=== PATIENT | female | born 1980 | race Caucasian/White ===

== ENCOUNTER 2016-08-20 14:13 | Inpatient (IN) | payer OTHER ==
[~2016-08-20] VITALS: Ht 160 cm; Wt 91.2 kg
[~2016-08-20 14:13] MED LIST: LR 1,000 ML IV.SOLN IV ONE; MIDAZOLAM HCL 5 MG/5 ML VIAL ONE; NS 500 ML BAG IV ONE; ONDANSETRON HCL 4 MG/2 ML VIAL ONE; OXYTOCIN 10 UNIT/ML VIAL ONE; PROPOFOL 200MG/ 20ML VIAL (DIPRIVAN) IV ONE; SEVOFLURANE 15 MIN GAS INH ONE; SUCCINYLCHOLINE CHLORIDE 20 MG/ML(QUELICIN) ONE; fentaNYL CITRATE 250 MCG/5 ML AMP ONE
--- NOTE | 2016-08-20 15:08 | NUR ---
ADMISSION NOTES RECEIVED A DIRECT ADMIT PT, IN NO ACUTE DISTRESS. ORIENTED TO CALL LIGHT USE.
[2016-08-20 15:10] VITALS: BP_SYST 104
[2016-08-20] MEDS ORDERED: CEFAZOLIN 2 GM IVPB PREMIX 50 ML IV ONE (16:00)
[2016-08-20 16:51] LABS: BASOPHILS # (AUTO) 0.1 K/uL (0.0-0.2); BASOPHILS % (AUTO) 0.6 % (0.0-2.0); EOSINOPHILS # (AUTO) 0.1 K/uL (0.0-0.4); EOSINOPHILS % (AUTO) 0.7 % (0.0-4.0); HEMATOCRIT 41.4 % (36-48); HEMOGLOBIN 14.2 g/dL (12.0-16.0); LYMPHOCYTES # (AUTO) 2.2 K/uL (1.0-5.5); LYMPHOCYTES % (AUTO) 24.4 % (20.5-51.5); MEAN CORPUSCULAR HEMOGLOBIN 29 pg (27-31); MEAN CORPUSCULAR HGB CONC 34 % (32-36); MEAN CORPUSCULAR VOLUME 83 fL (79.0-98.0); MONOCYTES # (AUTO) 0.2 K/uL (0.0-1.0); NEUTROPHILS # (AUTO) 6.6 K/uL (1.8-7.7); NEUTROPHILS % (AUTO) 72.3 % (40.0-70.0); PLATELET COUNT (AUTO) 265 K/uL (130-430); RED BLOOD CELL COUNT(AUTO) 4.99 MIL/uL (4.2-6.2); RED CELL DISTRIBUTION WIDTH 12.4 % (9.0-15.0); WHITE BLOOD COUNT (AUTO) 9.2 K/uL (4.8-10.8)
[2016-08-20 17:03] LABS: CALCIUM 8.8 mg/dL (8.4-11.0); CREATININE 0.72 mg/dL (0.55-1.30); POTASSIUM 3.4 mmol/L (3.5-5.1)
[2016-08-20 17:08] LABS: ALBUMIN 3.7 g/dL (3.4-4.8); TOTAL BILIRUBIN 0.5 mg/dL (0.0-1.0); TOTAL PROTEIN, SERUM 7.9 g/dL (6.4-8.3)
[2016-08-20] MEDS ORDERED: LR 1,000 ML IV SCH (19:25)
[2016-08-20] MEDS ORDERED: MORPHINE 2 MG/ML INJ. SYRINGE IVP PRN (19:30)
[2016-08-20] MEDS ORDERED: OXYTOCIN 20 UNIT in LR 1,000 ML IV SCH (19:30)
[2016-08-20] MEDS ORDERED: METHYLERGONOVINE MALEATE 0.2 MG/ML AMP IM ONE (19:30)
[2016-08-20] MEDS ORDERED: METOCLOPRAMIDE HCL 10 MG/2 ML VIAL IVP PRN ×2 (19:30→20:45)
[2016-08-20] MEDS ORDERED: ACETAMINOPHEN 500 MG TABLET PO PRN (19:30)
[2016-08-20] MEDS ORDERED: ONDANSETRON HCL 4 MG/2 ML VIAL IVP PRN (19:30)
[2016-08-20] MEDS ORDERED: OXYTOCIN/NORMAL SALINE 1,000 ML IV SCH ×2 (21:45→22:00)
[2016-08-20] MEDS ORDERED: OXYTOCIN 10 UNIT/ML VIAL ONE (22:05)
[2016-08-20 22:20] VITALS: BP_SYST 121
[2016-08-20] MEDS: METHYLERGONOVINE MALEATE 0.2 MG TABLET PO SCH (23:48)
[2016-08-21] MEDS: METHYLERGONOVINE MALEATE 0.2 MG TABLET PO SCH ×2 (06:26→14:50)
== END 2016-08-21 16:50 | disposition home or self-care (01) | DRG 777 ==
LOC: SDS 14:13 → SMU 14:19 → SPU 20:47
PROVIDERS: ADMIT Specialist; ATTEND Specialist
PROC: 10D28ZZ Extraction of Products of Conception, Ectopic, Via Natural or Artificial Opening Endoscopic (ICD-10-PCS; principal; 2016-08-20 16:00)
DX: O00.80 Other ectopic pregnancy without intrauterine pregnancy (principal); O34.219 Maternal care for unspecified type scar from previous cesarean delivery; E66.01 Morbid (severe) obesity due to excess calories; O43.2 Morbidly adherent placenta; O99.211 Obesity complicating pregnancy, first trimester; Z3A.01 Less than 8 weeks gestation of pregnancy; Z68.35 Body mass index [BMI] 35.0-35.9, adult
CPT/HCPCS: 36415; 80053; 85025; 85576; 85610-TC; 85730-TC; 86886; 86900; 86901; 86920; 87081; 88305; 94010; J0330; J0690; J2210; J2250; J2405; J2590; J2704; J3010; J7040; J7120

== ENCOUNTER 2018-01-28 20:30 | Observation (INO) | payer OTHER ==
[~2018-01-28] VITALS: Ht 160 cm; Wt 108.9 kg
[2018-01-28] MEDS ORDERED: LR 1,000 ML IV SCH (20:48)
[2018-01-28] MEDS ORDERED: TERBUTALINE SULFATE 1 MG/ML VIAL SUBCUT ONE (21:00)
[2018-01-28 21:26] LABS: BILIRUBIN,URINE NEGATIVE (NEGATIVE); BLOOD, URINE 1+ (NEGATIVE); CLARITY/URINE CLEAR (CLEAR); COLOR,URINE YELLOW (YELLOW); GLUCOSE,URINE NEGATIVE (NEGATIVE); KETONES,URINE 3+ (NEGATIVE); LEUKOCYTE ESTERASE ,URINE 2+ (NEGATIVE); NITRITE, URINE NEGATIVE (NEGATIVE); PH,URINE 6.5 (5.0-8.0); PROTEIN URINE TRACE (NEGATIVE); UROBILINOGEN,URINE 0.2 (0.2-1.0)
[2018-01-28 21:32] LABS: BACTERIA,URINE MODERATE /HPF (None Seen)
[2018-01-28 21:33] LABS: BASOPHILS % (AUTO) 0.2 % (0.0-2.0); EOSINOPHILS % (AUTO) 0.4 % (0.0-4.0); HEMATOCRIT 24.3 % (36-48); HEMOGLOBIN 8.8 g/dL (12.0-16.0); LYMPHOCYTES # (AUTO) 0.9 K/uL (1.0-5.5); LYMPHOCYTES % (AUTO) 13.1 % (20.5-51.5); MEAN CORPUSCULAR HEMOGLOBIN 30 pg (27-31); MEAN CORPUSCULAR HGB CONC 36 % (32-36); MEAN CORPUSCULAR VOLUME 85 fL (79.0-98.0); MONOCYTES # (AUTO) 0.4 K/uL (0.0-1.0); MONOCYTES % (AUTO) 5.2 % (1.7-9.3); NEUTROPHILS # (AUTO) 5.8 K/uL (1.8-7.7); NEUTROPHILS % (AUTO) 81.1 % (40.0-70.0); PLATELET COUNT (AUTO) 137 K/uL (130-430); RED BLOOD CELL COUNT(AUTO) 2.88 MIL/uL (4.2-6.2); RED CELL DISTRIBUTION WIDTH 13.4 % (9.0-15.0); WHITE BLOOD COUNT (AUTO) 7.1 K/uL (4.8-10.8)
[2018-01-28] MEDS ORDERED: TERBUTALINE SULFATE 1 MG/ML VIAL ONE (22:00)
== END 2018-01-29 09:30 | disposition home or self-care (01) ==
LOC: SPU 20:30
PROVIDERS: ADMIT Specialist; ATTEND Specialist
DX: O62.9 Abnormality of forces of labor, unspecified (principal); Z3A.36 36 weeks gestation of pregnancy
CPT/HCPCS: 36415; 81000; 81002; 85025; 86592; 86886; 86900; 86901; G0378 ×2; J3105; J7120

== ENCOUNTER 2018-01-30 18:18 | Inpatient (IN) | payer OTHER ==
[~2018-01-30] VITALS: Ht 160 cm; Wt 108.9 kg
[2018-01-30] MEDS ORDERED: TERBUTALINE SULFATE 1 MG/ML VIAL SUBCUT ONE (20:15)
[2018-01-30] MEDS ORDERED: TERBUTALINE SULFATE 1 MG/ML VIAL SUBCUT PRN (20:15)
[2018-01-30] MEDS ORDERED: TERBUTALINE SULFATE 1 MG/ML VIAL ONE (20:19)
[2018-01-30] MEDS: PROMETHAZINE HCL 25 MG/ML AMP IM PRN (22:10)
[2018-01-30] MEDS: MEPERIDINE HCL/PF 100 MG/ML AMP IM PRN (22:11)
[2018-01-31] MEDS: PROMETHAZINE HCL 25 MG/ML AMP IM PRN ×2 (02:20→06:24)
[2018-01-31] MEDS: MEPERIDINE HCL/PF 100 MG/ML AMP IM PRN ×2 (02:21→06:23)
[2018-01-31] MEDS ORDERED: LR 1,000 ML IV SCH (15:15)
[2018-02-02] MEDS ORDERED: HYDROCORTISONE 0.5%, 28.35 GM TOPICAL CREAM TP PRN (19:00)
== END 2018-02-05 16:50 | disposition home or self-care (01) | DRG 778 ==
LOC: SPU 18:18 → OBSVTOIN 01-31 18:34 → SPU 01-31 21:20
PROVIDERS: ADMIT Specialist; ATTEND Specialist
DX: O60.03 Preterm labor without delivery, third trimester (principal); Z3A.36 36 weeks gestation of pregnancy
CPT/HCPCS: 59025; 81002-TC; G0378; J2175; J2550; J3105; J7120

== ENCOUNTER 2018-02-11 05:20 | Inpatient (IN) | payer OTHER ==
[~2018-02-11] VITALS: Ht 160 cm; Wt 108.9 kg
[2018-02-11] MEDS ORDERED: LR 1,000 ML IV SCH ×3 (05:32→08:55)
[2018-02-11] MEDS ORDERED: CEFAZOLIN 2 GM IVPB PREMIX 50 ML IV ONE (05:45)
[2018-02-11 06:00] VITALS: BP_SYST 132
[2018-02-11 07:19] LABS: BASOPHILS # (AUTO) 0.1 K/uL (0.0-0.2); BASOPHILS % (AUTO) 0.7 % (0.0-2.0); EOSINOPHILS # (AUTO) 0.1 K/uL (0.0-0.4); EOSINOPHILS % (AUTO) 0.9 % (0.0-4.0); HEMOGLOBIN 12.3 g/dL (12.0-16.0); LYMPHOCYTES # (AUTO) 2.1 K/uL (1.0-5.5); LYMPHOCYTES % (AUTO) 22.8 % (20.5-51.5); MEAN CORPUSCULAR HEMOGLOBIN 30 pg (27-31); MEAN CORPUSCULAR HGB CONC 34 % (32-36); MEAN CORPUSCULAR VOLUME 86 fL (79.0-98.0); MONOCYTES # (AUTO) 0.4 K/uL (0.0-1.0); MONOCYTES % (AUTO) 4.6 % (1.7-9.3); NEUTROPHILS # (AUTO) 6.3 K/uL (1.8-7.7); PLATELET COUNT (AUTO) 178 K/uL (130-430); RED BLOOD CELL COUNT(AUTO) 4.17 MIL/uL (4.2-6.2); RED CELL DISTRIBUTION WIDTH 13.6 % (9.0-15.0)
[2018-02-11 07:24] LABS: BILIRUBIN,URINE NEGATIVE (NEGATIVE); BLOOD, URINE NEGATIVE (NEGATIVE); CLARITY/URINE SL HAZY (CLEAR); COLOR,URINE YELLOW (YELLOW); GLUCOSE,URINE NEGATIVE (NEGATIVE); KETONES,URINE TRACE (NEGATIVE); LEUKOCYTE ESTERASE ,URINE 2+ (NEGATIVE); NITRITE, URINE NEGATIVE (NEGATIVE); PROTEIN URINE NEGATIVE (NEGATIVE); UROBILINOGEN,URINE 0.2 (0.2-1.0)
[2018-02-11 08:15] LABS: BACTERIA,URINE FEW /HPF (None Seen); MUCUS,URINE None Seen /LPF (None Seen); RBC,URINE 0-3 /HPF (0-3); YEAST,URINE None Seen /HPF (None Seen)
[2018-02-11] MEDS ORDERED: METOCLOPRAMIDE HCL 10 MG/2 ML VIAL IVP PRN (08:45)
[2018-02-11] MEDS ORDERED: MEPERIDINE HCL/PF 25 MG/ML DISP.SYRIN IVP PRN (08:45)
[2018-02-11] MEDS ORDERED: MEPERIDINE HCL/PF 50 MG/ML AMP IVP PRN ×2 (08:45)
[2018-02-11] MEDS ORDERED: OXYTOCIN/0.9 % SODIUM CHLORIDE 1,000 ML IV ONE (08:55)
[2018-02-11] MEDS ORDERED: NS IRRIG SOLN 1000 ML IR ONE (09:00)
[2018-02-11] MEDS ORDERED: ePHEDrine sulfate 50 MG/ML VIAL ONE (09:00)
[2018-02-11] MEDS ORDERED: SENNOSIDES/DOCUSATE SODIUM 1 TAB TABLET(SENOKOT-S) PO PRN (09:00)
[2018-02-11] MEDS ORDERED: DOCUSATE SODIUM 100 MG CAPSULE PO PRN (09:00)
[2018-02-11] MEDS ORDERED: SIMETHICONE 80 MG TAB.CHEW PO PRN (09:00)
[2018-02-11] MEDS ORDERED: ONDANSETRON HCL 4 MG/2 ML VIAL ONE (09:00)
[2018-02-11] MEDS ORDERED: LR 1,000 ML IV.SOLN IV ONE (09:00)
[2018-02-11] MEDS ORDERED: BISACODYL 10 MG/SUPPOSITORY RC PRN (09:00)
[2018-02-11] MEDS ORDERED: BUPIVACAINE /DEX PF 0.75% SPINAL 2 ML AMP INJ ONE (09:00)
[2018-02-11] MEDS ORDERED: OXYTOCIN/0.9 % SODIUM CHLORIDE 20 UNITS/1,000 ML BAG IV ONE (09:00)
[2018-02-11] MEDS ORDERED: ACETAMINOPHEN 325 MG TABLET PO PRN (09:00)
[2018-02-11] MEDS ORDERED: MIDAZOLAM HCL 5 MG/ML VIAL (VERSED) IV ONE (09:00)
[2018-02-11 09:16] VITALS: BP_SYST 120
[2018-02-11] MEDS ORDERED: PROMETHAZINE HCL 25 MG/ML AMP IM PRN (11:00)
[2018-02-11] MEDS: PROMETHAZINE HCL 25 MG/ML AMP IM PRN ×3 (11:14→20:10)
[2018-02-11] MEDS: MEPERIDINE HCL/PF 100 MG/ML AMP IM PRN ×3 (11:16→20:22)
[2018-02-11] MEDS: KETOROLAC TROMETHAMINE 30 MG VIAL IVP SCH ×2 (13:00→18:25)
[2018-02-11] MEDS: CEFAZOLIN 1 GM IVPB PREMIX 50 ML IV SCH ×2 (14:30→20:13)
[2018-02-11] MEDS ORDERED: TEMAZEPAM 15 MG CAPSULE PO PRN (21:00)
[2018-02-12] MEDS: PROMETHAZINE HCL 25 MG/ML AMP IM PRN ×4 (02:40→20:15)
[2018-02-12] MEDS: MEPERIDINE HCL/PF 100 MG/ML AMP IM PRN ×4 (02:42→20:15)
[2018-02-12] MEDS: KETOROLAC TROMETHAMINE 30 MG VIAL IVP SCH (12:00)
[2018-02-12] MEDS ORDERED: DIPH-TET-PERTUS Vaccine 0.5 ML VIAL (ADACEL) I.M. PRN (18:00)
[2018-02-12] MEDS ORDERED: IBUPROFEN 600 MG TABLET ONE (18:09)
[2018-02-12] MEDS ORDERED: RHO(D) IMMUNE GLOBULIN/MALTOSE 1500 UNITS/1.3 ML (WINHRO) IM ONE (21:15)
[2018-02-12] MEDS: IBUPROFEN 600 MG TABLET PO SCH (23:30)
[2018-02-13] MEDS: IBUPROFEN 600 MG TABLET PO SCH ×3 (05:35→17:57)
[2018-02-13] MEDS ORDERED: OXYCODONE/ACETAMINOPHEN 5-325 TABLET PO PRN (12:15)
[2018-02-13] MEDS: OXYCODONE/ACETAMINOPHEN 5-325 TABLET PO PRN ×3 (12:28→19:05)
--- NOTE | 2018-02-13 16:32 | NUR ---
Dietitian Recommendations * Recommend continuing regular diet per LP, RD Please refer to Nutrition Assessment for details.
[2018-02-13] MEDS ORDERED: DIPH-TET-PERTUS Vaccine 0.5 ML VIAL (ADACEL) I.M. ONE (19:00)
== END 2018-02-13 19:19 | disposition home or self-care (01) | DRG 765 ==
LOC: SPU 05:20
PROVIDERS: ADMIT Specialist; ATTEND Specialist
PROC: 10D00Z1 Extraction of Products of Conception, Low, Open Approach (ICD-10-PCS; principal; 2018-02-11 07:30)
PROC: 30233S1 Transfusion of Nonautologous Globulin into Peripheral Vein, Percutaneous Approach (ICD-10-PCS; 2018-02-12)
DX: O34.211 Maternal care for low transverse scar from previous cesarean delivery (principal); Z68.41 Body mass index [BMI] 40.0-44.9, adult; E66.01 Morbid (severe) obesity due to excess calories; O99.214 Obesity complicating childbirth; Z3A.38 38 weeks gestation of pregnancy; Z37.0 Single live birth; Z88.5 Allergy status to narcotic agent
CPT/HCPCS: 36415; 81000-TC; 85025; 86592; 86886; 86900; 86901; 90715; 94760; J0690; J1885; J2175; J2250; J2405; J2550; J2590; J2790; J2792; J3410; J3490; J7120